=== PATIENT | female | born 1965 | race Caucasian/White ===

== ENCOUNTER 2019-08-15 13:50 | Emergency (ER) | payer BC, OTHER ==
[~2019-08-15] VITALS: Ht 172.7 cm; Wt 81.6 kg
--- NOTE | 2019-08-15 14:02 | ER.PDOC ---
General Chief Complaint: Requesting Medical Care Stated Complaint: POSSIBLE STROKE Time seen by MD: 14:01 Source: patient Exam Limitations: no limitations History of Present Illness Initial Comments 54 Y/O WITH HX TO ED WITH LOWER CHEST PAIN/UPPER ABD PAIN THAT GOES TO BACK WITH SOB THAT GETS WORSE THEN BETTER X 1 HR AGO. PATIENT S/P MULTIPLE PAST SURGERIES MOST RECENT TENDON SURGERY OF LEFT LOWER EXT DONE 06/22/2019. SHE AGREES TO CHRONIC PAIN LAST DOES OF XANAX AND NORCO 10 WAS THIS AM. STATES OF CHEST PAIN COMES AND GOES, MADE WORSE WITH DEEP BREATH, NO FEVER, NO EXPO TO COVID-19. NO PAST SAME PAIN. ON ANTIBIOTIC FOR UTI. Timing/Duration: 1 hour Severity/Quality: severe, sharp, stabbing Radiation: back Activities at Onset: other Prior CP/Workup: No Prior Chest Pain Modifying Factors: movement Nitro Today/Relief: No Nitro Taken Today Aspirin Today: No Aspirin Today Associated Symptoms: abdominal pain, back pain, shortness of breath Prior symptoms/Treatment: Similar symptoms previous Allergies: Coded Allergies: No Known Allergies (Unverified , 08/15/19) Home Meds Reported Medications Promethazine Hcl (PROMETHAZINE HCL) 25 Mg Supp.rect, 25 MG RC TID, EA 08/15/19 Alprazolam (ALPRAZOLAM) 0.25 Mg Tablet, 1 TAB PO QID, #90 TAB 08/15/19 Cefdinir (CEFDINIR) 300 Mg Capsule, 1 CAP PO BID, #14 CAP 08/15/19 Hydrocodone Bit/Acetaminophen (HYDROCODON-ACETAMINOPHN 10-300) 1 Each Tablet, 1 TAB PO Q4 PRN for PAIN 7 - 10 MDD 4 Tablet(s) for 30 Days, #120 TAB 0 Refills 08/15/19 Past Medical History Medical History: other Surgical History: appendectomy, back, cholecystectomy, gastric bypass, other Family History Significant Family History: no pertinent family hx Social History Alcohol Use: none Drug Use: none Reviewed Nursing Reviewed: Vital Signs, Abn. Noted, Nursing Assessment Constitutional: no symptoms reported EENTM: no symptoms reported Respiratory: shortness of breath Cardiovascular: chest pain Gastrointestinal: abdominal pain Genitourinary: no symptoms reported Musculoskeletal: no symptoms reported Skin: no symptoms reported Psychiatric/Neurological: no symptoms reported Endocrine: no symptoms reported Hematologic/Lymphatic: no symptoms reported Physical Exam General Appearance: WD/WN, Anxious, Severe Distress HEENT: PERRL/EOMI, Normal ENT Inspection, TMs Normal, Pharynx Normal Neck: Non-Tender, Full Range of Motion, Supple, Normal Inspection Respiratory: chest non-tender, lungs clear, normal breath sounds, no respiratory distress, no accessory muscle use Cardiovascular: Normal Peripheral Pulses, Regular Rate, Rhythm, No Edema, No Gallop, No JVD, No Murmur Gastrointestinal: Normal Bowel Sounds, No Organomegaly, No Pulsatile Mass, So ft, Tenderness Extremities: Normal Range of Motion, Non-Tender, Normal Inspection, No Pedal Edema, No Calf Tenderness, Normal Capillary Refill, Other Neurologic/Psychiatric: cutter hot knife II-XII NML as Tested, No Motor/Sensory Deficits, Alert, Normal Mood/Affect, Oriented x 3 Skin: Normal Color, Warm/Dry Lymphatic: No Adenopathy Comments LEFT LEG--SPLINT IN PLACE FROM TENDON SURGERY THAT WAS DONE --06/22/2019. EQUAL PULSES. PATIENT STATES PAIN COMES AND GOES IN LOWER CHEST AND UPPER ABD AND GOES TO BACK. Progress Progress AT 1600--NO SYMPTOMS, NO PAIN, DIFF DX IN DETAIL, CAUSE OF CHEST PAIN --UNKNOWN, FOLLOW UP WITH YOUR DR, URINE PENDING--PATIENT WANTS TO GO HOME--WILL WAIT FOR URINE. 1620---URINE BACK, DISCUSSED CHANGING CIPRO TO ANOTHER ANTIBIOTIC WITH HER HEALING FROM FOOT SURGERY, PATIENT WANTED TO STAY ON CURRENT ANTIBIOTIC. PATIENT WANTS TO GO HOME--WANTS NO FURTHER WORK UP. EKG/XRAY/CT/US EKG: NSR EKG Comments: 1342--ECG-RATE--99, NO ACUTE CHANGES. Departure Time of Disposition: 16:07 Disposition: 01 HOME, SELF-CARE Impression: Primary Impression: Chest pain Condition: Stable Patient Instructions: Chest Pain (Nonspecific) Referrals: PCP,UNKNOWN (PCP) PRIMARY CARE PROVIDER Additional Instructions: TO ED IF WORSE, FOLLOW UP WITH YOUR DR'S. Duration or Time Spent with Pa: 30 MIN FLORES WALSH DO August 15, 2019 14:02
[2019-08-15] MEDS ORDERED: ZOFRAN ONE (14:08)
[2019-08-15] MEDS ORDERED: HYDR-2368 PO (14:09)
[2019-08-15] MEDS ORDERED: ALPR0.254 PO (14:09)
[2019-08-15] MEDS ORDERED: CEFD300C2 PO (14:09)
[2019-08-15] MEDS ORDERED: MORPHINE SULFATE ONE (14:09)
[2019-08-15] MEDS ORDERED: PROM25SU33 RC (14:10)
[2019-08-15 14:12] VITALS: BP 138/84
[2019-08-15 14:24] LABS: BASOPHIL # 0.1 10^3/uL (0.0-0.1); BASOPHIL % 0.6 % (0.0-0.2); EOSINOPHIL # 0.1 10^3/uL (0.0-0.2); EOSINOPHIL % 0.8 % (0.0-5.0); LYMPHOCYTES # 1.86 10^3/uL1 (1.0-4.8); LYMPHOCYTES % 23.6 % (24.0-44.0); MEAN CORP HGB 26.7 pg (26-34); MONOCYTES # 0.6 10^3/uL (0.3-0.8); MONOCYTES % 7.1 % (5.0-12.0); NEUTROPHIL # 5.4 10^3/uL (1.8-7.7); NEUTROPHILS % 67.9 % (41.0-85.0); PLATELET COUNT 428 10^3/uL (150-400); RED CELL DISTRIBUTION WIDTH 15.2 % (11.5-14.5)
[2019-08-15] MEDS ORDERED: ZOFRAN IV PRN (14:30)
[2019-08-15] MEDS ORDERED: MORPHINE SULFATE IV PRN (14:30)
--- NOTE | 2019-08-15 14:41 | PCM.EKG ---
[facility] Test Date: 2019-08-15 Test Time: 13:42:54 Pat Name: ADRIANA CARRERA Department: Room: Gender: F Educational Therapist: CUAUHTEMOC : [id number] Requested By: FLORES WALSH Order Number: [id number] Reading MD: Measurements Intervals Jessie Rate: 99 P: -12 CA: 107 QRS: 61 QRSD: 89 T: 51 QT: 353 QTc: 453 Interpretive Statements Sinus rhythm No previous ECG available for comparison Please click the below link to view image of tracing.
--- NOTE | 2019-08-15 14:55 | NUR ---
[facility] CALLED WITH D DIMER OF 0.62, READ BACK AND REPORTED TO EDP.
[2019-08-15 15:02] LABS: ALANINE AMINOTRANSFERASE(ML) 27 U/L (12-78); ALKALINE PHOSPHATASE 97 U/L (50-136); ASPARTATE AMINO TRANSFERASE 29 U/L (0-35); CALCIUM 9.2 mg/dL (8.4-10.5); CARBON DIOXIDE 25.8 mmol/L (20.0-32); GLUCOSE 118 mg/dL (70-110)
[2019-08-15 15:11] VITALS: BP 138/87
--- NOTE | 2019-08-15 15:23 | DIREP ---
PROCEDURE:CTA CHEST ABDOMEN PELVIS W/RUNOFF COMPARISON:None. INDICATIONS:chest pain/upper abd pain x 1 hr TECHNIQUE:After obtaining the patient's consent, CTA images of the chest, abdomen, pelvis and bilateral lower extremity runoff were obtained without and with non-ionic intravenous contrast material. Multi-planar/3-D images were created to optimize visualization of vascular anatomy. FINDINGS: CHEST: VASCULATURE:Normal. THORACIC AORTA:Normal. LUNGS:Normal. MEDIASTINUM/JOHNNIE:Normal. CARDIAC:Normal. PLEURA:Normal. CHEST WALL:Normal. BONES:Normal, except for extensive fusion of lumbosacral spine. OTHER:Normal. ABDOMEN PELVIS: SUPRARENAL AORTA:Normal. CELIAC:Patent. SMA:Patent. RIGHT RENAL:Patent. LEFT RENAL:Patent. INFRARENAL AORTA:Normal. RIGHT EXTERNAL ILIAC:Patent. LEFT EXTERNAL ILIAC:Patent. RIGHT LOWER EXTREMITY COMMON FEMORAL:Patent SUPERFICIAL FEMORAL:Patent POPLITEAL:Patent POSTERIOR TIBIAL:Patent ANTERIOR TIBIAL:Patent PERONEAL:Patent LEFT LOWER EXTREMITY COMMON FEMORAL:Patent SUPERFICIAL FEMORAL:Patent POPLITEAL:Patent POSTERIOR TIBIAL:Patent ANTERIOR TIBIAL:Patent PERONEAL:Patent ADDITIONAL FINDINGS AND OBSERVATIONS: Previous hysterectomy. Urinary bladder, bowel loops, kidneys, adrenals, pancreas, and spleen are normal. A small hepatic cyst noted. Previous cholecystectomy. Previous gastric reduction/bypass surgery. No inflammatory changes, free fluid, free air, or adenopathy. CONCLUSION:Postsurgical changes. No acute abnormality. The vascular structures are normal, without evidence of aneurysm, stenosis, dissection, or leak. Dictated by: Darin Bach M.D. on 08/15/2019 at 03:15 PM
[2019-08-15 15:51] LABS: BILIRUBIN,URINE NEGATIVE (NEGATIVE); UROBILINOGEN,URINE NORMAL (NEGATIVE)
[2019-08-15 15:59] LABS: APPEARANCE,URINE CLEAR (CLEAR); UA COLOR YELLOW (YELLOW)
[2019-08-15 16:09] VITALS: BP 138/79
== END 2019-08-15 16:30 | disposition home or self-care (01) ==
LOC: ER 13:50
DX: R07.9 Chest pain, unspecified (principal); R06.02 Shortness of breath; Z79.899 Other long term (current) drug therapy; Z90.49 Acquired absence of other specified parts of digestive tract; Z98.84 Bariatric surgery status
CPT/HCPCS: 36415; 71275; 73701; 74174; 80053; 81000; 82550; 82553; 84484; 85025; 85379; 85610; 85730; 87086; 93005; 96374; 96375; 99285; J2270; J2405; Q9965